=== PATIENT | female | born 2005 | race Two or more races ===

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

== ENCOUNTER 2025-01-02 15:28 | Emergency (ER) | payer MEDICAID, SELFPAY ==
[2025-01-02 15:42] VITALS: BP 116/77; PULSE 71; RESP 18; TEMP 37.1; O2SAT 97
--- NOTE | 2025-01-02 16:01 | EDNOTE_ITS ---
ED GI Bleed RME/HPI General Chief complaint: GI Bleed Stated complaint: RECTAL BLEEDING X YESTERDAY Time Seen by Provider: 01/02/25 15:36 Source: patient Arrival date/time: 01/02/25 15:28 19-year-old female with no known medical history presents to the emergency room with a chief complaint of bright red rectal bleeding x 2 days Mode of arrival: ambulatory Limitations: no limitations Related Data Previous Rx's ?Medication ?Instructions ?Recorded ibuprofen 800 mg tablet 800 mg PO TID #30 tabs 05/31 lidocaine HCl 2 % mucosal solution 2 % PO Q2H #120 mL 05/31/18 (Lidocaine Viscous) ibuprofen 800 mg tablet 800 mg PO TID PRN pain #30 t abs 10/14/21 cyclobenzaprine 7.5 mg tablet 7.5 mg PO BID #10 tabs 1 10/14/21 Allergies Allergy/AdvReac Type Severity Reaction Status Date / Time No Known Allergies Allergy Verified 01/02/25 15:32 Review of Systems Review of Systems Systems Reviewed: All systems reviewed, normal except as documented Constitutional Constitutional: Reports system reviewed and no additional complaints, except as documented, Denies fatigue, Denies fever(s), Denies headache(s) and Denies weakness Eyes Eyes: Reports system reviewed and no additional complaints, except as documented, Denies blurry vision and Denies change in vision ENT Ears, Nose, Mouth, and Throat: Reports system reviewed and no additional complaints, except as documented, Denies otalgia, Denies headache(s), Denies nasal congestion, Denies throat swelling and Denies vertigo Cardiovascular Cardiovascular: Reports system reviewed and no additional complaints, except as documented, Denies chest pain, Denies dyspnea and Denies dyspnea on exertion Respiratory Respiratory: Reports system reviewed and no additional complaints, except as documented, Denies chest congestion, Denies cough, Denies dyspnea, Denies dyspnea on exertion and Denies wheezing Gastrointestinal Gastrointestinal: Reports system reviewed and no additional complaints, except as documented, Denies abdominal pain, Denies cramping, Reports hematochezia, Denies nausea and Denies vomiting Genitourinary Genitourinary: Reports system reviewed and no additional complaints, except as documented Musculoskeletal Musculoskeletal: Reports system reviewed and no additional complaints, except as documented and Denies back pain Integumentary/Breasts Skin/Breast: Reports system reviewed and no additional complaints, except as documented and Denies wounds Neurologic Neurologic: Reports system reviewed and no additional complaints, except as documented, Denies confusion, Denies headache(s), Denies lack of coordination, Denies vertigo and Denies weakness Psychiatric Psychiatric: Reports system reviewed and no additional complaints, except as do cumented, Denies anxiety, Denies confusion, Denies depression, Denies paranoia, Denies suicidal ideation and Denies tactile hallucinations Endocrine Endocrine: Reports system reviewed and no additional complaints, except as documented and Denies fatigue Hematologic/Lymphatic Hematologic/Lymphatic: Reports system reviewed and no additional complaints, except as documented and Denies lymphadenopathy Allergic/Immunologic Allergic/Immunologic: Reports system reviewed and no additional complaints, except as documented, Denies throat swelling, Denies urticaria and Denies wheezing ED Exam General Limitations: Present no limitations General appearance: Present alert and in no apparent distress Head Head exam: Present atraumatic Eye Eye exam: Present normal appearance, PERRL and EOMI ENT ENT exam: Present normal exam, normal oropharynx and mucous membranes moist Neck Neck exam: Present normal inspection, full ROM and trachea midline Chest Chest inspection: Present normal inspection and symmetric chest wall rise Respiratory Respiratory exam: Present normal lung sounds bilaterally Cardiovascular Cardiovascular exam: Present regular rate, normal rhythm and normal heart sounds Abdominal Exam Abdominal exam: Present soft and normal bowel sounds Extremities Exam Extremities exam: Present normal inspection and full ROM Back Exam Back exam: Present normal inspection and full ROM Neurological Exam Neurological exam: Present alert, oriented X3 and CN II-XII intact Psychiatric Psychiatric exam: Present normal affect and normal mood Skin Skin exam: Present warm, dry, intact and normal color Course Quality Measures none Orders Category Date Time Status CBC Stat Lab 01/02/25 16:17 Completed CMP [Comprehensive Metabolic Panel] Stat Lab 01/02/25 16:17 Completed UA, C/S IF [Urinalysis, C/S if Indicated] Stat Lab 01/02/25 15:50 Ordered Vital Signs Vital signs: Vital Signs Temperature 98.7 F 01/02/25 15:42 Pulse Rate 71 01/02/25 15:42 Respiratory Rate 18 01/02/25 15:42 Blood Pressure 116/77 01/02/25 15:42 Pulse Oximetry (%) 97 01/02/25 15:42 Oxygen Delivery Method Room Air 01/02/25 15:42 O2 saturation 97% within normal limits GI Bleed MDM Narrative MDM Narrative:: 19-year-old female with no known medical history presents to the emergency room with a chief complaint of bright red rectal bleeding x 2 days Patient is hemodynamically stable and in no apparent distress Patient deferred physical examination and there were no female providers to perform this examination. Based on the patient's examination she denies any external hemorrhoids or anal fissures. CBC CMP were within normal limits. Hemoglobin and hematocrit were stable Patient and mother were educated that she will need to follow-up with a primary care provider for referral to a finisher tailor apprentice if her signs and symptoms continue Patient was discharged and educated to follow-up with primary care provider in the next 24 to 48 hours and return to the emergency room for any evidence of worsening signs or symptoms Patient data External records reviewed:: [facility] previous records Clinical information provided by:: patient and parent Social determinants that could affect healthcare access:: none Patient has the following chronic illnesses:: No chronic illness How is presenting disease/condition affected by chronic disease/condition?: no chronic disease Evaluation data The following diagnostics were reviewed and interpreted by me:: lab results and radiology exam(s) Lab and/or radiology exams considered but not ordered:: Labs and radiology exams considered in order Interpretation Summary: N/A Medications / Prescriptions Medications or Prescriptions considered but not ordered:: No medication given Medication administrations:: No medication given Consultations Consultation(s) initiated? (list below): No Diagnosis GI bleed differential diagnosis: hemorrhoids, Lower gastrointestinal hemorrhage, anal fissure and other (Rectal bleeding) Most likely diagnosis given after review of the tests above:: Rectal bleeding Admission Indicated Admission indicated?: not indicated Admission Request Was there a request for admission?: No Disposition Plan Disposition Plan: Discharge Discharge Attestation Discharge Attestation: The patient and all family members were given an opportunity to ask questions and understood the discharge instructions. Discharge instructions specifically effects, indications for sooner follow up or return to the emergency department, and the expected course of current diagnosis. Patient condition: Stable Discharge Plan Plan Patient Disposition: HOME (Self Care) Discharge Disposition comment: Stable Prescriptions/Referrals Prescriptions/Med Rec: No Action ibuprofen 800 mg tablet 800 mg PO TID Qty: 30 0RF lidocaine HCl [Lidocaine Viscous] 2 % solution 2 % PO Q2H Qty: 120 0RF Rx Instructions: Next 5 mL's with 1/4 cup water, gargle and spit every 2 hours for throat pain ibuprofen 800 mg tablet 800 mg PO TID PRN (Reason: pain) Qty: 30 0RF cyclobenzaprine 7.5 mg tablet 7.5 mg PO BID Qty: 10 0RF Referrals: Marichuy Kathleen PA-C [Primary Care Provider] - In 1 week Problem List Clinical Impression: Bright red rectal bleeding Patient/Caregiver Discharge Instructions Education Materials: ED Lower GI Bleeding (Stable) Additional Instructions: Please follow-up with your primary care provider in the next 24 to 48 hours. Your blood levels are within normal limits there has not been a significant loss of blood and you are hemodynamically stable. Please follow-up with your primary care provider for further management of your rectal bleeding. If this continues you will need to be sent to a finisher tailor apprentice for further management For any evidence of worsening signs or symptoms return to the emergency room immediately Print Language: Greek Stand Alone Forms: Jess Award Info., Work/School Release, Patient Portal Info Letter JAIR/TREY Supervising Physician NEHA Supervising Physician: Dr. Kwan
[2025-01-02 16:23] LABS: Basophils % (Auto) 1 % (0-2.5); Eosinophils # (Auto) 0.3 Thou/mm3 (0.0-0.5); Eosinophils % (Auto) 4 % (0-10); Hematocrit 36.4 % (36.0-46.0); Hemoglobin 13.1 g/dL (12.0-16.0); Immature Granulocytes % (Auto) 0 % (0-0); Immature Granulocytes Auto 0.01 Thou/mm3 (0.00-0.00); Lymphocytes # (Auto) 2.9 Thou/mm3 (1.0-5.0); Lymphocytes % (Auto) 37 % (10-50); Mean Corpuscular Hemoglobin 30.3 pg (25.0-35.0); Mean Corpuscular Volume 84 fL (80-100); Monocytes # (Auto) 0.5 Thou/mm3 (0.0-0.8); Monocytes % (Auto) 6 % (0-12); Neutrophils % (Auto) 52 % (37-80); Nucleated Red Blood Cell % 0 /100 WBC (0); Platelet Count 282 Thou/mm3 (140-440); RDW Standard Deviation 37.5 fL (36.4-46.3); Red Blood Count 4.33 Miln/mm3 (4.00-5.20); White Blood Count 7.7 Thou/mm3 (4.5-11.0)
[2025-01-02 16:41] LABS: Alanine Aminotransferase 17 U/L (10-49); Albumin/Globulin Ratio 1.7 (1.2-2.2); Alkaline Phosphatase 54 U/L (46-116); Anion Gap 10 (7-16); Aspartate Amino Transferase 19 U/L (0-34); BUN/Creatinine Ratio 9 Ratio (12-20); Bilirubin,Total 1.7 mg/dL (0.3-1.2); Blood Urea Nitrogen 10 mg/dL (9-23); Calcium 9.5 mg/dL (8.3-10.6); Calcium (Corrected) 9.5 mg/dL (8.5-10.1); Carbon Dioxide 24.5 mMol/L (20.0-31.0); Chloride 109 mMol/L (98-107); Creatinine (Component) 1.1 mg/dL (0.6-1.3); Estimated Creatinine Clearance 99.5 mL/min (>60); Glucose 89 mg/dL (74-106); Osmolality,Calculated 282 (275-295); Potassium 3.7 mMol/L (3.4-5.1); Sodium 143 mMol/L (136-145); eGFR > 60 See Note
[2025-01-02 17:16] LABS: Collection Type, Urine Clean Catch
[2025-01-02 17:20] VITALS: BP 135/87; PULSE 87; RESP 18; TEMP 36.9; O2SAT 99
[2025-01-02 17:25] LABS: Bacteria,Urine 4+; Bilirubin,Urine Negative (Negative); Blood,Urine Trace (Negative); Clarity,Urine Turbid (Clear/Hazy); Color,Urine Yellow (Lt Yel-Yel); Culture Indicated,Urine Contaminated; Glucose, Urine Negative (Negative); Ketones,Urine Negative (Negative); Leukocyte Esterase,Urine Positive (Negative); Nitrite,Urine Negative (Negative); Protein,Urine Trace (Neg - Trace); RBC,Urine 3 /hpf (0-3); Renal Epithelial Cells,Urine 1 /hpf (0-5); Specific Gravity,Urine 1.026 (1.001-1.035); Squamous Epithelial Cell,Urine 37 /hpf (0-5); Urobilinogen,Urine Negative mg/dL (0.0-1.0); WBC,Urine 38 /hpf (0-5)
== END 2025-01-02 18:03 | disposition home or self-care (01) ==
PROVIDERS: Nurse Practitioner Family; Emergency Provider Emergency Medicine; PCP Physician Assistant Medical
DX: K62.5 Hemorrhage of anus and rectum (principal)
CPT/HCPCS: 36415; 80053; 81001; 85025; 99283